=== PATIENT | female | born 1980 ===

== ENCOUNTER 2016-10-22 12:04 | Day surgery (SDC) | payer OTHER ==
[2016-10-22 12:46] VITALS: TEMP 97.6
[2016-10-22] MEDS ORDERED: Indomethacin 50 MG Suppository PR ONE (13:31)
[2016-10-22] MEDS ORDERED: Piperacillin/Tazobact 3.375 gm Inj IVPB ONE (13:33)
[2016-10-22] MEDS ORDERED: Iohexol 240 (50 ml) ONE (13:33)
[2016-10-22] MEDS ORDERED: Propofol 10 mg/ml Inj (20 ML) ONE (13:33)
[2016-10-22] MEDS ORDERED: Piperacillin/Tazobact 3.375 gm 100 ML IVPB STA (13:33)
[2016-10-22] MEDS ORDERED: Rocuronium 10 mg/ml (5 ml) ONE (13:34)
[2016-10-22] MEDS ORDERED: Midazolam 2 MG/2 ML VIAL ONE (13:34)
[2016-10-22] MEDS ORDERED: Succinylcholine 200 mg/10 ml Inj IV ONE (13:34)
[2016-10-22] MEDS ORDERED: Lidocaine 2% Inj (20ml) ONE (13:40)
[2016-10-22] MEDS ORDERED: Lactated Ringer's 1,000 ML IV SCH (16:09)
[2016-10-22 19:05] VITALS: BP 110/67; PULSE 63; RESP 18; O2SAT 98
== END 2016-10-22 19:48 | disposition short-term general hospital (02) ==
LOC: ENDO 12:04
PROVIDERS: ATTEND Internal Medicine
DX: K80.50 Calculus of bile duct without cholangitis or cholecystitis without obstruction (principal); K29.70 Gastritis, unspecified, without bleeding; B96.81 Helicobacter pylori [H. pylori] as the cause of diseases classified elsewhere
CPT/HCPCS: 43239; 43264; 43274 ×2; 74330; C2625 ×3; J0171; J0330; J1100; J2250; J2405; J2543; J2704; J3010; J7120 ×2; Q9966

== ENCOUNTER 2016-12-08 06:24 | Day surgery (SDC) | payer OTHER ==
[2016-11-17 11:12] VITALS: BMI 23.4
[2016-12-08] MEDS ORDERED: Iohexol 240 (50 ml) ONE (07:04)
[2016-12-08 07:05] LABS: INR 0.94 (0.93-1.08); PARTIAL THROMBOPLASTIN TIME 29.2 Seconds (23.7-30.8)
[2016-12-08] MEDS ORDERED: Indomethacin 50 MG Suppository PR ONE (07:06)
[2016-12-08 07:09] LABS: ADD MANUAL DIFF? NO; BASO # 0.02 K/mm3 (0.0-2.0); BASO % 0.3 % (0.0-3.0); EOS # 0.3 (0.0-0.7); GRAN # 3.41 (1.4-6.5); GRAN % 58.9 % (50.0-68.0); HEMATOCRIT 32.1 % (36.0-48.0); LYMPH # 1.6 (1.2-3.4); LYMPH % 27.5 % (22.0-35.0); MEAN CELL VOLUME 79.9 fL (80.0-105.0); MEAN CORPUSCULAR HEMOGLOBIN 26.9 pg (25.0-35.0); MEAN CORPUSCULAR HGB CONC 33.6 g/dl (31.0-37.0); MEAN PLATELET VOLUME 9.8 fl (7.0-11.0); MONO # 0.5 (0.1-0.6); MONO % 8.3 % (1.0-6.0); PLATELET COUNT 373 10^3/uL (120.0-450.0); RED CELL DISTRIBUTION WIDTH 14.3 % (11.5-14.5); WHITE BLOOD COUNT 5.8 10^3/ul (4.5-11.0)
[2016-12-08 07:34] LABS: ALB/GLOB RATIO 1.3 (1.1-1.8); ALKALINE PHOSPHATASE 135 U/L (38-133); ALT/SGPT 32 U/L (7-56); AST/SGOT 41 U/L (15-39); BILIRUBIN,TOTAL 0.4 mg/dL (0.2-1.3); BLOOD UREA NITROGEN 14 mg/dL (7-21); CALCIUM 9.3 mg/dL (8.4-10.5); CARBON DIOXIDE 25 mmol/L (21-33); CHLORIDE 105 mmol/L (95-110); GFR AFRICAN-AMERICAN > 60; GLUCOSE,RANDOM 93 mg/dL (70-110); SODIUM 141 mmol/L (132-148); TOTAL PROTEIN 7.9 g/dL (5.8-8.3)
[2016-12-08] MEDS ORDERED: Propofol 10 mg/ml Inj (20 ML) ONE ×2 (08:10→09:42)
[2016-12-08] MEDS ORDERED: Midazolam 2 MG/2 ML VIAL ONE (08:10)
[2016-12-08] MEDS ORDERED: Piperacill/Tazo 4.5gm in NS 4.5 GM/100 ML BAG IVPB STA (08:18)
[2016-12-08] MEDS ORDERED: Succinylcholine 200 mg/10 ml Inj IV ONE (08:19)
[2016-12-08] MEDS ORDERED: Piperacillin/Tazobact 3.375 gm Inj IVPB ONE (08:29)
[2016-12-08] MEDS ORDERED: Phenylephrine 10 mg/ml Inj ONE (09:29)
[2016-12-08] MEDS ORDERED: ePHEDrine 50 mg/ml Inj ONE (09:29)
[2016-12-08] MEDS ORDERED: Sodium Chloride 0.9% 1,000 ML IV SCH (09:30)
[2016-12-08] MEDS ORDERED: Piperacillin/Tazobact 3.375 gm 100 ML IVPB STA (09:45)
[2016-12-08 12:05] VITALS: TEMP 97.5; O2SAT 100
[2016-12-08 13:52] VITALS: BP 114/64; PULSE 74; RESP 18
--- NOTE | 2016-12-11 17:50 | RAD ---
PROCEDURE: ERCP with lithotripsy. HISTORY: R/O OBSTRUCTION COMPARISON: None TECHNIQUE: Standard protocol for this study/examination. FINDINGS: Total fluoroscopic time (continuous mode) utilized during the procedure: 2 minutes 45 seconds. IMPRESSION: Submitted images from the current procedure: 4.0
== END 2016-12-08 16:10 | disposition home or self-care (01) ==
LOC: ENDO 06:24
PROVIDERS: ATTEND Internal Medicine
DX: K80.50 Calculus of bile duct without cholangitis or cholecystitis without obstruction (principal)
CPT/HCPCS: 36415; 43262; 43265; 43275; 74330; 80053; 84703; 85025; 85610; 85730; C1726; J0330; J1100; J2250; J2370; J2405; J2543 ×2; J2704; J3010; J7040 ×2; Q9966